=== PATIENT | male | born 1990 | race Caucasian/White ===

== ENCOUNTER 2024-10-16 16:52 | Emergency (ER) | payer BC ==
[2024-10-16] MEDS: Take Home: Amoxicillin 500 MG, 6 Cap Pack PO ONE (17:25)
[2024-10-16] MEDS ORDERED: Take Home: Amoxicillin 500 MG, 6 Cap Pack ONE (17:26)
== END 2024-10-16 17:29 | disposition home or self-care (01) ==
LOC: DL.ED 16:52
DX: K08.89 Other specified disorders of teeth and supporting structures (principal); Z91.018 Allergy to other foods
CPT/HCPCS: 99283; A9270; 99282